=== PATIENT | female | born 1985 | race Caucasian/White ===

== ENCOUNTER 2019-02-24 09:46 | Outpatient (CLI) | payer OTHER ==
--- NOTE | 2019-02-24 10:15 | ULT ---
RIGHT UPPER QUADRANT ULTRASOUND CLINICAL HISTORY: Right upper quadrant pain. COMPARISON: None FINDINGS: Liver:Normal echotexture without focal mass. Intrahepatic bile ducts: No intrahepatic or extrahepatic biliary dilation.; Common bile duct: 2.1 mm. Gallbladder: Normal appearing. Verma's sign:None Main portal vein:Patent with hepatopedal flow. Pancreas:Visualized pancreas appears normal. Right kidney: Right kidney measures 11.4 x 3.1 x 5.4. No focal renal lesion or hydronephrosis. Additional findings: None. IMPRESSION: Normal RUQ ultrasound.
== END 2019-02-24 09:47 | disposition home or self-care (01) ==
LOC: SCSULT 09:46
PROVIDERS: ATTEND Family Medicine
DX: R10.11 Right upper quadrant pain (principal)
CPT/HCPCS: 76705